=== PATIENT | female | born 1990 | race Two or more races ===

== ENCOUNTER 2017-02-06 15:11 | Emergency (ER) | payer SELFPAY ==
[~2017-02-06] VITALS: Ht 152.4 cm; Wt 72.6 kg
[2017-02-06 15:25] VITALS: BP 128/67
--- NOTE | 2017-02-06 15:41 | PHYS DOC ---
Adult General Chief Complaint Chief Complaint: OTHER COMPLAINTS HPI HPI Patient is a 26 year old female with no significant medical history who presents with right groin staph infection from ingrown hairs for a couple days. Patient states she was seen at a different facility and was given a prescription for cephalexin Bactroban and Bactrim which she lost in the bus. Patient denies any fever. Review of Systems Review of Systems Constitutional: See history of present illness Musculoskeletal: Denies back pain or joint pain [] Integument: Right groin infected ingrown hairs Neurologic: Denies headache, focal weakness or sensory changes [] Endocrine: Denies polyuria or polydipsia [] Current Medications Current Medications Current Medications Medications (Trade) Dose Ordered Sig/Bang Start Time Stop Time Status Last Admin Dose Admin Diphtheria/ Tetanus/Acell Pertussis (Boostrix) 0.5 ml ONCE ONCE 02/06/17 15:45 02/06/17 15:46 UNV Physical Exam Physical Exam Constitutional: Well developed, well nourished, no acute distress, non-toxic appearance. [] Skin: Right groin with 2 open areas approximately 1 x 1 cm each, the area appears to have cellulitis, the areas appear to be infected ingrown hair. No fluctuance to the area. Back: No tenderness, no CVA tenderness. [] Extremities: No tenderness, no cyanosis, no clubbing, ROM intact, no edema. [] Neurologic: Alert and oriented X 3, normal motor function, normal sensory function, no focal deficits noted. [] Psychologic: Affect normal, judgement normal, mood normal. [] Current Patient Data Vital Signs Vital Signs Date Time Temp Pulse Resp B/P (MAP) Pulse Ox O2 Delivery O2 Flow Rate FiO2 02/06/17 15:25 97.9 82 16 96 Room Air 97.9 EKG EKG [] Radiology/Procedures Radiology/Procedures [] Course & Med Decision Making Course & Med Decision Making Pertinent Labs and Imaging studies reviewed. (See chart for details) Patient has an infected ingrown hairs to the grown. She was given tetanus in the ED. She was already on treatment with cephalexin, Bactroban and Bactrim DS and she lost the medication in a bus. Same prescriptions were written again. Instructed to keep the areas clean and dry. Instructed to avoid shaving the area especially with a straight razor for the next 10 days. Follow-up with her own PCP in 1-2 weeks. Aliya Disclaimer Aliya Disclaimer This electronic medical record was generated, in whole or in part, using a voice recognition dictation system. Departure Departure Impression: Primary Impression: Ingrown hair Additional Impression: Cellulitis of groin, right Disposition: 01 HOME, SELF-CARE Condition: STABLE Referrals: NO PCP (PCP) followu up with your doctor in one week Patient Instructions: Cellulitis, Brlx-is-Eied, Ingrown Hair Additional Instructions: You were seen for infected ingrown hairs. Please do not shave groin region for the next 10 days, avoid using a straight razor for shaving. Ensure you complete your antibiotics. Keep the affected areas clean and dry. Scripts Sulfamethoxazole/Trimethoprim (BACTRIM DS TABLET) 1 Each Tablet 1 TAB PO BID, #20 TAB Prov: DESIRE PATEL APRN 02/06/17 Mupirocin Calcium (BACTROBAN CREAM) 15 Gm Cream..g. 1 ATA TP TID, #30 GM Prov: DESIRE PATEL APRN 02/06/17 Cephalexin (CEPHALEXIN) 500 Mg Capsule 1 CAP PO QID, #40 CAP Prov: DESIRE PATEL APRN 02/06/17 Problem Qualifiers DESIRE PATEL APRN February 06, 2017 15:41
[2017-02-06] MEDS ORDERED: DIPHTH,PERTUSS(ACELL),TET TOX 0.5 ML DISP.SYRIN. VAX IM ONE (15:45)
[2017-02-06] MEDS ORDERED: SULF1TAB24 PO (15:48)
[2017-02-06] MEDS ORDERED: CEPH500C PO (15:48)
[2017-02-06] MEDS ORDERED: MUPI15CR TP (15:48)
== END 2017-02-06 16:25 | disposition home or self-care (01) ==
LOC: ER 15:11
DX: L03.314 Cellulitis of groin (principal); L73.1 Pseudofolliculitis barbae; Z23 Encounter for immunization
CPT/HCPCS: 90471; 90715; 99283-25